=== PATIENT | female | born 1935 | race Two or more races ===

== ENCOUNTER 2017-11-12 07:53 | Day surgery (SDC) | payer OTHER ==
[~2017-11-12] VITALS: Ht 157.5 cm; Wt 57.6 kg
[~2017-11-12 07:53] MED LIST: AMLO5TAB2 PO; ASPI81TA27 PO; CARV3.1240 PO; FURO20TA3 PO; LEVO50TA7 PO; LOSA50TA6 PO; METF-370 PO; MULTCAP45 PO; PRAV20TA3 PO; SERT-274 PO
[2017-11-12] MEDS: fentaNYL CITRATE 100 MCG/2 ML VL ONE (08:18)
[2017-11-12] MEDS: MIDAZOLAM HCL 1MG/1ML-2 ML VIAL ONE (08:18)
[2017-11-12] MEDS: ANGIOMAX 250 MG VIAL IV ONE ×2 (08:18→09:45)
[2017-11-12] MEDS: LIDOCAINE HCL 2 %PF INJ 10ML AMP IJ ONE ×2 (08:29→08:36)
[2017-11-12] MEDS: IODIXANOL 320MG/ML 100ML BTL IV ONE (08:29)
[2017-11-12] MEDS: SODIUM CHL 0.9% 0 ML ONE (09:03)
== END 2017-11-12 12:20 | disposition home or self-care (01) ==
LOC: CATH 07:53
PROVIDERS: ATTEND Internal Medicine Cardiovascular Disease
DX: I25.10 Atherosclerotic heart disease of native coronary artery without angina pectoris (principal); I34.0 Nonrheumatic mitral (valve) insufficiency; I10 Essential (primary) hypertension; E11.9 Type 2 diabetes mellitus without complications; E78.5 Hyperlipidemia, unspecified; E03.9 Hypothyroidism, unspecified
CPT/HCPCS: 93458; C1760; C1894; J0583; J1644; J2250; J3010; J7030; Q9967; 99152; 99153